=== PATIENT | female | born 1965 | race American Indian/Alaskan Native ===

== ENCOUNTER 2018-07-21 07:33 | Outpatient (CLI) | payer OTHER ==
--- NOTE | 2018-07-21 09:39 | Mammography Report ---
BILATERAL DIGITAL SCREENING MAMMOGRAM with CAD : 07/21/18 07:33:00 CLINICAL: Routine screening. COMPARISON:None available. She stated that she had had a previous mammogram at a [place] hospital. FINDINGS: The breasts are heterogeneously dense, which may obscure small masses.A partially circumscribed 2 cm left breast mass at 12 o'clock has benign features with large central calcifications. No other mass, architectural distortion or suspicious calcifications. IMPRESSION: No mammographic evidence of malignancy. BI-RADS CATEGORY: 2 -- Benign RECOMMENDATION: Routine mammographic screening in one year. COMMENT: Patient follow-up letters are generated by our JME[employer] application.
== END 2018-07-21 07:34 | disposition home or self-care (01) ==
LOC: MAMMO 07:33
PROVIDERS: ATTEND Internal Medicine
DX: Z12.31 Encounter for screening mammogram for malignant neoplasm of breast (principal); I10 Essential (primary) hypertension; J45.909 Unspecified asthma, uncomplicated; M19.90 Unspecified osteoarthritis, unspecified site; Z90.710 Acquired absence of both cervix and uterus
CPT/HCPCS: 77067

== ENCOUNTER 2018-08-23 07:38 | Emergency (ER) | payer SELFPAY ==
[2018-08-23 07:45] VITALS: BP 169/93
[2018-08-23] MEDS ORDERED: AFRIN NS ONE (08:45)
--- NOTE | 2018-08-23 08:52 | Emergency Department Report ---
ED ENT HPI - General Chief complaint: Nosebleed Stated complaint: NOSE BLEED Time Seen by Provider: 08/23/18 08:44 Source: patient Mode of arrival: Ambulatory Limitations: No Limitations - History of Present Illness Initial comments: Patient is a 53-year-old female who is presenting status post nosebleed. Patient states she was having some bleeding from both nostrils at the last longer than normal. Patient states she has asthma and when she has asthma exacerbation sometimes after taking albuterol treatments sometimes she'll get dried out and will have a nosebleed. Patient is able controlled medically usually rather quickly however nosebleed at greater than hour this morning. Patient states this is resolved now she is coming to the emergency department. Patient denies any nausea vomiting or lightheadedness at this time. - Related Data Home Medications Medication Instructions Recorded Confirmed Last Taken Albuterol Sulfate [Albuterol 0.63%] 0.63 mg IH TID PRN 03/16/14 03/16/14 16:00 Aspirin [Baby Aspirin] 81 mg PO QDAY 03/16/14 03/16/14 03/15/14 09:00 Ibuprofen [Motrin] 800 mg PO Q8H PRN 03/16/14 03/16/14 03/15/14 10:00 Potassium Chloride [K-Dur] 20 meq PO QDAY 03/16/14 03/16/14 03/15/14 10:00 hydroCHLOROthiazide [Hctz] 25 mg PO QDAY 03/16/14 03/16/14 03/15/14 10:00 Previous Rx's Medication Instructions Recorded Last Taken Type HYDROcodone/ACETAMINOPHEN [[place] 1 each PO Q6HR #20 tablet 03/16/14 Unknown Rx 5/325 Tablet] Meloxicam [Mobic] 7.5 mg PO QDAY #30 tablet 03/16/14 Unknown Rx Allergies Allergy/AdvReac Type Severity Reaction Status Date / Time No Known Allergies Allergy Verified 08/23/18 07:43 ED Dental HPI - General Chief complaint: Nosebleed Stated complaint: NOSE BLEED Time Seen by Provider: 08/23/18 08:44 Source: patient Mode of arrival: Ambulatory Limitations: No Limitations - Related Data Home Medications Medication Instructions Recorded Confirmed Last Taken Albuterol Sulfate [Albuterol 0.63%] 0.63 mg IH TID PRN 03/16/14 03/16/14 16:00 Aspirin [Baby Aspirin] 81 mg PO QDAY 03/16/14 03/16/14 03/15/14 09:00 Ibuprofen [Motrin] 800 mg PO Q8H PRN 03/16/14 03/16/14 03/15/14 10:00 Potassium Chloride [K-Dur] 20 meq PO QDAY 03/16/14 03/16/14 03/15/14 10:00 hydroCHLOROthiazide [Hctz] 25 mg PO QDAY 03/16/14 03/16/14 03/15/14 10:00 Previous Rx's Medication Instructions Recorded Last Taken Type HYDROcodone/ACETAMINOPHEN [[place] 1 each PO Q6HR #20 tablet 03/16/14 Unknown Rx 5/325 Tablet] Meloxicam [Mobic] 7.5 mg PO QDAY #30 tablet 03/16/14 Unknown Rx Allergies Allergy/AdvReac Type Severity Reaction Status Date / Time No Known Allergies Allergy Verified 08/23/18 07:43 ED Review of Systems ROS: Stated complaint: NOSE BLEED Other details as noted in HPI Comment: All other systems reviewed and negative ED Past Medical Hx - Past Medical History Hx Hypertension: Yes Hx Deep Vein Thrombosis: Yes Hx Arthritis: Yes Hx Asthma: Yes - Surgical History Additional Surgical History: hysterectomy tubal ligation - Social History Smoking Status: Never Smoker Substance Use Type: None - Medications Home Medications: Home Medications Medication Instructions Recorded Confirmed Last Taken Type Albuterol Sulfate [Albuterol 0.63%] 0.63 mg IH TID PRN 03/16/14 03/16/14 16:00 History Aspirin [Baby Aspirin] 81 mg PO QDAY 03/16/14 03/16/14 03/15/14 09:00 History HYDROcodone/ACETAMINOPHEN [[place] 1 each PO Q6HR #20 tablet 03/16/14 Unknown Rx 5/325 Tablet] Ibuprofen [Motrin] 800 mg PO Q8H PRN 03/16/14 03/16/14 03/15/14 10:00 History Meloxicam [Mobic] 7.5 mg PO QDAY #30 tablet 03/16/14 Unknown Rx Potassium Chloride [K-Dur] 20 meq PO QDAY 03/16/14 03/16/14 03/15/14 10:00 History hydroCHLOROthiazide [Hctz] 25 mg PO QDAY 03/16/14 03/16/14 03/15/14 10:00 History ED Physical Exam - General Limitations: No Limitations General appearance: alert, in no apparent distress - Head Head exam: Present: atraumatic, normocephalic - Eye Eye exam: Present: normal appearance - ENT ENT exam: Present: normal orophraynx, mucous membranes moist (patient's anterior nasal turbinates show some mild erythema with no active bleeding), normal external ear exam - Neck Neck exam: Present: normal inspection - Respiratory Respiratory exam: Present: normal lung sounds bilaterally. Absent: respiratory distress, rales, rhonchi - Cardiovascular Cardiovascular Exam: Present: regular rate, normal rhythm. Absent: systolic murmur, diastolic murmur, rubs, gallop - GI/Abdominal GI/Abdominal exam: Present: soft, normal bowel sounds - Extremities Exam Extremities exam: Present: normal inspection - Back Exam Back exam: Present: normal inspection - Neurological Exam Neurological exam: Present: alert, oriented X3 - Psychiatric Psychiatric exam: Present: normal affect, normal mood - Skin Skin exam: Present: warm, dry, intact, normal color. Absent: rash ED Course Vital Signs 08/23/18 07:43 Temperature 98.6 F Pulse Rate 100 H Respiratory 18 Rate Blood Pressure 169/93 O2 Sat by Pulse 98 Oximetry ED Medical Decision Making - Medical Decision Making Start Afrin spray for the next 2 days and will be discharged home. Critical care attestation.: If time is entered above; I have spent that time in minutes in the direct care of this critically ill patient, excluding procedure time. ED Disposition Clinical Impression: Epistaxis Disposition: - TO HOME OR SELFCARE Is pt being admited?: No Does the pt Need Aspirin: No Condition: Stable Instructions: Epistaxis (ED) Additional Instructions: Please use Afrin spray twice a day for the next 2-3 days Referrals: PRIMARY CARE, [Primary Care Provider] - 3-5 Days Time of Disposition: 08:52
== END 2018-08-23 08:57 | disposition home or self-care (01) ==
LOC: ED 07:38
DX: R04.0 Epistaxis (principal); I10 Essential (primary) hypertension; Z86.718 Personal history of other venous thrombosis and embolism; J45.909 Unspecified asthma, uncomplicated; M19.90 Unspecified osteoarthritis, unspecified site; Z90.710 Acquired absence of both cervix and uterus; Z98.51 Tubal ligation status; Z79.899 Other long term (current) drug therapy
CPT/HCPCS: 99282

== ENCOUNTER 2019-09-28 09:18 | Outpatient (CLI) | payer OTHER ==
--- NOTE | 2019-09-28 14:41 | Mammography Report ---
DIGITAL SCREENING MAMMOGRAM WITH CAD, 09/28/2019 INDICATION: Routine screening mammography. TECHNIQUE: Digital bilateral 2D mammography was obtained in the craniocaudal and mediolateral obliq ue projections. This examination was interpreted with the benefit of Computer-Aided Detection analysi s. COMPARISON: 07/21/2018 FINDINGS: Breast Density: The breasts are heterogeneously dense, which may obscure small masses. There is no evidence of new mass, suspicious calcifications or architectural distortion in either mookie ast. A 1.8 cm benign left upper fibroadenoma with dense central calcification. IMPRESSION: No mammographic evidence of malignancy. Follow up recommendation: Routine yearly BI-RADS Category 2: Benign. A "normal" or negative report should not discourage follow up or biopsy of a clinically significant f inding. A written summary of these findings will be mailed to the patient. The patient will be entered into a mammography reporting system which will generate a reminder letter for the patient's next appointmen t at the appropriate interval. The [employer] recommends yearly mammograms starting at age 40 and continuing as l ana as a woman is in good health. Breast MRI is recommended for women with an approximate 20-25% or greater lifetime risk of breast cancer, including women with a strong family history of breast or ova zachery cancer or who have been treated for Hodgkin's disease. Signer Name: David Dao MD Signed: 09/28/2019 2:37 PM Workstation Name: [id number]
== END 2019-09-28 09:19 | disposition home or self-care (01) ==
LOC: MAMMO 09:18
PROVIDERS: ATTEND Internal Medicine
DX: Z12.31 Encounter for screening mammogram for malignant neoplasm of breast (principal)
CPT/HCPCS: 77067

== ENCOUNTER 2020-12-28 09:25 | Outpatient (CLI) | payer OTHER ==
--- NOTE | 2020-12-28 10:36 | Mammography Report ---
DIGITAL SCREENING MAMMOGRAM WITH CAD, 12/28/2020 CLINICAL INFORMATION / INDICATION: Routine screening mammography. TECHNIQUE: Digital bilateral 2D mammography was obtained in the craniocaudal and mediolateral obliqu e projections. This examination was interpreted with the benefit of Computer-Aided Detection analysis . COMPARISON: 07/21/2018, 09/28/2019 FINDINGS: Breast Density: There are scattered areas of fibroglandular density. No dominant mass, suspicious calcifications, or architectural distortion in either breast. Coarsely calcified benign mass is again noted in the left breast at 12:00 consistent with fibroadenom a. Overall, no interval change in the appearance of the mammogram. IMPRESSION: No mammographic evidence of malignancy. Follow up recommendation: Routine yearly BI-RADS Category 2: Benign. A "normal" or negative report should not discourage follow up or biopsy of a clinically significant f inding. A written summary of these findings will be mailed to the patient. The patient will be entered into a mammography reporting system which will generate a reminder letter for the patient's next appointmen t at the appropriate interval. The [employer] recommends yearly mammograms starting at age 40 and continuing as l ana as a woman is in good health. Breast MRI is recommended for women with an approximate 20-25% or greater lifetime risk of breast cancer, including women with a strong family history of breast or ova zachery cancer or who have been treated for Hodgkin's disease. Signer Name: Yasmin Montero MD Signed: 12/28/2020 10:32 AM Workstation Name: [id number]
== END 2020-12-28 09:26 | disposition home or self-care (01) ==
LOC: MAMMO 09:25
PROVIDERS: ATTEND Internal Medicine
DX: Z12.31 Encounter for screening mammogram for malignant neoplasm of breast (principal)
CPT/HCPCS: 77067

== ENCOUNTER 2022-04-15 11:44 | Emergency (ER) | payer OTHER ==
[2022-04-15] MEDS ORDERED: BACITRACIN/POLYMYXIN B OINT 28.35 GM TP NR (17:57)
--- NOTE | 2022-04-15 18:01 | Emergency Department Report ---
ED Extremity Problem HPI - General Chief complaint: Skin Rash Stated complaint: LT LEG PAIN Time Seen by Provider: 04/15/22 17:47 Source: patient Mode of arrival: Ambulatory Limitations: No Limitations - History of Present Illness Initial comments: 57-year-old female with a past medical history of obesity, chronic lymphedema and arthritis presents to the hospital complaining of weeping and drainage to her left leg. Patient applied a bandage to the area with mild drainage. She denies fever, shortness of breath, headache chest pain, or history or DVTs (contrary to what is mentioned on triage). Patient typically follows up with the [place] [facility]. Patient presents with hypertension and states she recently resumed her medication. - Related Data Home Medications Medication Instructions Recorded Confirmed Last Taken Albuterol Sulfate [Albuterol 0.63%] 0.63 mg IH TID PRN 03/16/14 03/16/14 03/15/14 16:00 Aspirin [Baby Aspirin] 81 mg PO QDAY 03/16/14 03/16/14 11/09/18 Ibuprofen [Motrin] 800 mg PO Q8H PRN 03/16/14 03/16/14 03/15/14 10:00 Potassium Chloride [K-Dur] 20 meq PO QDAY 03/16/14 03/16/14 11/09/18 Furosemide [Lasix TAB] 1 tab PO DAILY 11/09/18 11/09/18 lisinopriL [Prinivil] 10 mg PO DAILY 11/09/18 11/09/18 Previous Rx's Medication Instructions Recorded Last Taken Type cephALEXin [Keflex] 500 mg PO Q12HR #20 cap 11/09/18 Unknown Rx Clindamycin [Clindamycin CAP] 300 mg PO Q8HR #30 capsule 05/07/20 Unknown Rx Silver Sulfadiazine [Silvadene] 1,000 gm TP ONCE #1 cream..g. 05/07/20 Unknown Rx Silver Sulfadiazine [Ssd] 1 applicatio TP BID #1 bottle 04/15/22 Unknown Rx Sulfamethoxazole/Trimethoprim 1 each PO BID #20 tab 04/15/22 Unknown Rx [Bactrim DS TAB] Allergies Allergy/AdvReac Type Severity Reaction Status Date / Time codeine AdvReac Nausea Verified 05/07/20 14:07 ED Review of Systems ROS: Stated complaint: LT LEG PAIN Other details as noted in HPI Comment: All other systems reviewed and negative ED Past Medical Hx - Past Medical History Hx Hypertension: Yes Hx Deep Vein Thrombosis: Yes Hx Arthritis: Yes Hx Asthma: Yes Additional medical history: lymphedema - Surgical History Additional Surgical History: hysterectomy tubal ligation - Social History Smoking Status: Never Smoker Substance Use Type: None - Medications Home Medications: Home Medications Medication Instructions Recorded Confirmed Last Taken Type Albuterol Sulfate [Albuterol 0.63%] 0.63 mg IH TID PRN 03/16/14 03/16/14 03/15/14 16:00 History Aspirin [Baby Aspirin] 81 mg PO QDAY 03/16/14 03/16/14 11/09/18 History Ibuprofen [Motrin] 800 mg PO Q8H PRN 03/16/14 03/16/14 03/15/14 10:00 History Potassium Chloride [K-Dur] 20 meq PO QDAY 03/16/14 03/16/14 11/09/18 History Furosemide [Lasix TAB] 1 tab PO DAILY 11/09/18 11/09/18 History cephALEXin [Keflex] 500 mg PO Q12HR #20 cap 11/09/18 Unknown Rx lisinopriL [Prinivil] 10 mg PO DAILY 11/09/18 11/09/18 History Clindamycin [Clindamycin CAP] 300 mg PO Q8HR #30 capsule 05/07/20 Unknown Rx Silver Sulfadiazine [Silvadene] 1,000 gm TP ONCE #1 cream..g. 05/07/20 Unknown Rx Silver Sulfadiazine [Ssd] 1 applicatio TP BID #1 bottle 04/15/22 Unknown Rx Sulfamethoxazole/Trimethoprim 1 each PO BID #20 tab 04/15/22 Unknown Rx [Bactrim DS TAB] ED Physical Exam - General Limitations: No Limitations - Other Other exam information: General: No acute distress Head: Atraumatic Eyes: normal appearance ENT: Moist mucous membranes Neck: Normal appearance, no midline tenderness Chest: Clear to auscultation bilaterally CV: Regular rate and rhythm Abdomen: Soft, normal bowel sounds, nontender, nondistended, no rebound or guarding Back: Normal inspection Extremity: Significant bilateral lower extremity edema secondary to lymphedema with chronic skin changes secondary to lymphedema. Posterior area has some minimal skin breakdown with yellow drainage without significant warmth, or erythema. Leg symmetrical. Neuro: Alert O x 3, no facial asymmetry, speech clear, no gross motor sensory deficit Psych: Appropriate behavior Skin: No rash ED Course Vital Signs 04/15/22 04/15/22 12:27 18:10 Temperature 98.9 F Pulse Rate 101 H 91 H Respiratory 20 18 Rate Blood Pressure 180/102 Blood Pressure 156/77 [Left] O2 Sat by Pulse 98 99 Oximetry - Reevaluation(s) Reevaluation #1: 04/15/22 18:10 Repeat BP improved prior to discharge ED Medical Decision Making - Medical Decision Making 57-year-old female presents to the hospital nontoxic-appearing complaining of chronic lymphedema with some skin breakdown and drainage to the left leg. Patient states that she was treated with Silvadene cream and antibiotics in the past with improvement. Patient had labs ordered and pending. Patient does not have any systemic symptoms and no suspicious for sepsis at this time. Patient also denies symptoms of shortness of breath and edema appears to be chronic. Patient offered to wait for blood draw versus just treatment with meds and follow-up. Patient elected to receive medications for infection and follow-up with PMD and declined blood work at this time. Critical Care Time: No Critical care attestation.: If time is entered above; I have spent that time in minutes in the direct care of this critically ill patient, excluding procedure time. ED Disposition Clinical Impression: Lymphedema, Left leg cellulitis, Chronic hypertension Disposition: HOME / SELF CARE / HOMELESS Is pt being admited?: No Does the pt Need Aspirin: No Condition: Stable Instructions: Cellulitis, Adult, Lymphedema, Hypertension (ED) Additional Instructions: Take the medication as prescribed. Follow-up with your doctor or doctor/clinic provided. Return if symptoms worsen as indicated by your discharge instructions. Prescriptions: Sulfamethoxazole/Trimethoprim [Bactrim DS TAB] 1 each PO BID #20 tab Silver Sulfadiazine [Ssd] 1 applicatio TP BID #1 bottle Referrals: MD AYLIN [Other] - 3-5 Days
[2022-04-15] MEDS ORDERED: SULFAMETHOXAZOLE/TRIMETHOPRIM 800/160MG DS TAB PO ONE (18:08)
[2022-04-15 18:10] VITALS: BP 156/77
[2022-04-15] MEDS ORDERED: NEOMY 3.5 MG/BACIT 400 UNITS/POLY B 5000 UNITS/GM OINT PACKET TP ONE (18:18)
== END 2022-04-15 18:43 | disposition home or self-care (01) ==
LOC: ED 11:44
DX: I89.0 Lymphedema, not elsewhere classified (principal); L03.116 Cellulitis of left lower limb; I10 Essential (primary) hypertension; Z88.6 Allergy status to analgesic agent; J45.909 Unspecified asthma, uncomplicated
CPT/HCPCS: 99282